=== PATIENT | female | born 1990 | race Caucasian/White ===

== ENCOUNTER 2019-07-07 22:05 | Emergency (ER) | payer OTHER ==
[~2019-07-07] VITALS: Ht 165.1 cm; Wt 61.7 kg
[2019-07-07 22:09] VITALS: Ht 165.1 cm; Wt 61.7 kg
[2019-07-08 00:25] VITALS: BP 116/77
== END 2019-07-08 00:25 | disposition home or self-care (01) ==
LOC: ED 22:05
DX: J10.1 Influenza due to other identified influenza virus with other respiratory manifestations (principal)
CPT/HCPCS: 87804